=== PATIENT | female | born 1930 | race Caucasian/White ===

== ENCOUNTER 2017-12-29 13:30 | Inpatient (IN) | payer MEDICARE, MEDICAID ==
[~2017-12-29] VITALS: Ht 167.6 cm; Wt 74.4 kg
[~2017-12-29 13:30] MED LIST: GABA-530 PO; HYDR-569 PO; LEVO125T69 PO; LISI-222 PO; LOP25T PO; MONT10TA21 PO; NAPR-56 PO; NITR0.4T51 SL; OXYGEN; SPIIN INH; ZET10T PO
[2017-12-29] MEDS ORDERED: methylPREDNISolone sod succ 125mg/2ml vial IV ONE (13:50)
[2017-12-29] MEDS: albuterol 2.5 MG/3 ML nebule CONTNEB PRN ×2 (14:09→14:11)
[2017-12-29 14:17] LABS: BASOPHILS % (AUTO) 0.3 % (0-1); EOSINOPHILS # (AUTO) 0.1 X10'3 (0-0.9); EOSINOPHILS % (AUTO) 2.1 % (0-6); HEMATOCRIT 37.2 % (35.0-45.0); HEMOGLOBIN 12.4 g/dl (12.0-16.0); LYMPHOCYTES # (AUTO) 1.9 X10'3 (1.1-4.8); LYMPHOCYTES % (AUTO) 34.5 % (21-51); MEAN CORPUSCULAR HEMOGLOBIN 33.8 PG (27.0-31.0); MEAN CORPUSCULAR HGB CONC 33.3 % (33.0-36.5); MEAN CORPUSCULAR VOLUME 101.6 FL (78-98); MEAN PLATELET VOLUME 7.8 FL (7.4-10.4); MONOCYTES # (AUTO) 0.6 X10'3 (0-0.9); MONOCYTES % (AUTO) 9.9 % (2-12); NEUTROPHILS % (AUTO) 53.2 % (42-75); PLATELET COUNT 181 X10'3 (140-440); RED BLOOD COUNT 3.67 X10'6 (4.20-5.60); RED CELL DISTRIBUTION WIDTH 14.2 % (11.5-14.5); WHITE BLOOD COUNT 5.6 X10'3 (4.5-11.0)
[2017-12-29 14:26] LABS: ABG BASE EXCESS 2.3 mmol/L (-2.0-3.0); ABG HCO3 28.6 mmol/L (22.0-26.0); ABG OXYGEN SATURATION 93.8 % (95-98); ABG PCO2 (T) 51.2 mmHg (32.0-45.0); ABG PH (T) 7.365 (7.350-7.450); ABG PO2 (T) 69.6 mmHg (83-108); ALLEN'S TEST Positive; FCOHb 0.5 % (0.5-1.5); FMetHb 0.1 % (0.3-1.12); FO2Hb 93.2 % (94-100); TOTAL HEMOGLOBIN 13.3 G/dl (12.0-16.0)
[2017-12-29 14:39] LABS: ALANINE AMINOTRANSFERASE 27 U/L (12-78); ALBUMIN 3.5 G/DL (3.4-5.0); ALBUMIN/GLOBULIN RATIO 0.9 (1.1-1.5); ALKALINE PHOSPHATASE 80 IU/L (46-116); ANION GAP 9 (8-16); ASPARTATE AMINO TRANSFERASE 21 U/L (10-37); BILIRUBIN,TOTAL 0.5 MG/DL (0.1-1.0); BLOOD UREA NITROGEN 29 MG/DL (7-18); BUN/CREATININE RATIO 22.3 (6.6-38.0); CALCIUM 8.8 MG/DL (8.5-10.1); CHLORIDE 107 MMOL/L (99-107); GLUCOSE 110 MG/DL (70-104); POTASSIUM 4.1 MMOL/L (3.5-5.1); SODIUM 146 MMOL/L (135-145); TOTAL CARBON DIOXIDE 30.3 MMOL/L (24-32); TOTAL PROTEIN 7.4 G/DL (6.4-8.2); eGFR 39 ML/MIN
[2017-12-29] MEDS ORDERED: LORazepam 2 mg/ml vial IV ONE (14:40)
[2017-12-29] MEDS ORDERED: magnesium 2GM in 50ml NS 50 ML IV PRN (15:25)
[2017-12-29] MEDS ORDERED: magnesium Cl slow-release 64mg tablet PO PRN (15:25)
[2017-12-29] MEDS ORDERED: morphine 4 MG/ML inj SYRINge IV PRN ×2 (15:25)
[2017-12-29] MEDS ORDERED: potassium Cl 40MEQ/NS 500ml 500 ML IV PRN ×2 (15:25)
[2017-12-29] MEDS ORDERED: acetaminophen 325mg tablet PO PRN (15:25)
[2017-12-29] MEDS ORDERED: magnesium hydroxide 30ml (MOM) UD suspension PO PRN (15:25)
[2017-12-29] MEDS ORDERED: magnesium 4gm in 100ml NS 100 ML IV PRN (15:25)
[2017-12-29] MEDS: K and/or MAG REPLACEMENT MC SCH (15:25)
[2017-12-29] MEDS ORDERED: potassium Cl 20 mEq SR tablet PO PRN ×2 (15:25)
[2017-12-29] MEDS ORDERED: ondansetron/PF 4mg/2ml inj IV PRN (15:25)
[2017-12-29] MEDS ORDERED: mag hydrox/Alum hydrox/simeth 30ml oral suspension PO PRN (15:25)
[2017-12-29] MEDS: CefTRIAXone/D5W-Rocephin 1gm 50 ML IV SCH (16:47)
[2017-12-29] MEDS: normal saline 1000ml 1,000 ML IV SCH (16:47)
[2017-12-29] MEDS: enoxaparin 40mg/0.4ml syringe SUBCUT SCH (16:48)
[2017-12-29] MEDS ORDERED: dextrose ORAL solution 15 GM/59 ML bottle PO PRN ×2 (17:00)
[2017-12-29] MEDS ORDERED: dextrose 50%-water 50ml dispensing syringe IV PRN ×2 (17:00)
[2017-12-29] MEDS ORDERED: glucagon, human recombinant 1mg kit SUBCUT PRN (17:00)
[2017-12-29] MEDS ORDERED: MESSAGE TO PHARMACY PO ONE (17:00)
[2017-12-29 17:19] LABS: HEMOGLOBIN A1C 5.6 % (4.5-6.2)
[2017-12-29] MEDS: levoFLOXACIN-Levaquin 250mg/D5 50 ML IV SCH (18:06)
[2017-12-29] MEDS: ipratropium/albuterol 3ml nebule NEB SCH ×2 (20:19→23:00)
[2017-12-29] MEDS ORDERED: temazepam 15mg capsule PO PRN (21:00)
[2017-12-29] MEDS: guaiFENesin ER 600mg tablet PO SCH (21:41)
[2017-12-29] MEDS: methylPREDNISolone sod succ 125mg/2ml vial IV SCH (21:41)
[2017-12-29] MEDS: insulin glargine (Lantus) pen - multi-dose SQ SCH (22:43)
[2017-12-29] MEDS: insulin Lispro (HumaLOG) vial - multi-dose SQ SCH (22:45)
[2017-12-29] MEDS: acetaminophen 325mg tablet PO PRN (22:46)
[2017-12-29] MEDS ORDERED: FLUT16SP10 (22:58)
[2017-12-29] MEDS ORDERED: UMEC1DIS (22:58)
[2017-12-29] MEDS ORDERED: METO-539 PO (22:58)
[2017-12-29] MEDS ORDERED: FURO-150 PO (22:58)
[2017-12-29] MEDS ORDERED: SYN0.088T PO (22:58)
[2017-12-29] MEDS ORDERED: EZET10TA14 PO (22:58)
[2017-12-30] MEDS: ipratropium/albuterol 3ml nebule NEB PRN (00:06)
[2017-12-30] MEDS: ipratropium/albuterol 3ml nebule NEB SCH ×6 (00:07→23:48)
[2017-12-30] MEDS: methylPREDNISolone sod succ 125mg/2ml vial IV SCH ×4 (03:45→19:31)
[2017-12-30] MEDS: normal saline 1000ml 1,000 ML IV SCH ×2 (05:55→20:00)
[2017-12-30 05:56] LABS: HEMATOCRIT 33.9 % (35.0-45.0); HEMOGLOBIN 11.1 g/dl (12.0-16.0); MEAN CORPUSCULAR HEMOGLOBIN 33.3 PG (27.0-31.0); MEAN CORPUSCULAR HGB CONC 32.6 % (33.0-36.5); MEAN CORPUSCULAR VOLUME 102.2 FL (78-98); PLATELET COUNT 153 X10'3 (140-440); RED BLOOD COUNT 3.32 X10'6 (4.20-5.60); RED CELL DISTRIBUTION WIDTH 14.1 % (11.5-14.5); WHITE BLOOD COUNT 4.1 X10'3 (4.5-11.0)
[2017-12-30 06:10] LABS: ANION GAP 10 (8-16); BLOOD UREA NITROGEN 35 MG/DL (7-18); BUN/CREATININE RATIO 22.3 (6.6-38.0); CALCIUM 8.6 MG/DL (8.5-10.1); CHLORIDE 108 MMOL/L (99-107); CREATININE 1.57 MG/DL (0.40-0.90); GLUCOSE 195 MG/DL (70-104); MAGNESIUM 1.9 MG/DL (1.5-2.4); POTASSIUM 4.1 MMOL/L (3.5-5.1); SODIUM 144 MMOL/L (135-145); TOTAL CARBON DIOXIDE 26.4 MMOL/L (24-32); eGFR 31 ML/MIN
[2017-12-30 07:00] VITALS: BP 143/63
[2017-12-30] MEDS: K and/or MAG REPLACEMENT MC SCH (08:00)
[2017-12-30] MEDS: CefTRIAXone/D5W-Rocephin 1gm 50 ML IV SCH (08:34)
[2017-12-30] MEDS: guaiFENesin ER 600mg tablet PO SCH ×2 (08:34→19:31)
[2017-12-30] MEDS: levoFLOXACIN-Levaquin 250mg/D5 50 ML IV SCH (08:35)
[2017-12-30] MEDS: enoxaparin 40mg/0.4ml syringe SUBCUT SCH (08:36)
[2017-12-30] MEDS: insulin Lispro (HumaLOG) vial - multi-dose SQ SCH ×3 (10:20→19:45)
[2017-12-30 15:00] VITALS: BP 120/54
[2017-12-30] MEDS: acetaminophen 325mg tablet PO PRN (16:17)
[2017-12-30 18:00] VITALS: BP 143/71
[2017-12-30] MEDS: insulin glargine (Lantus) pen - multi-dose SQ SCH (21:00)
[2017-12-30 22:00] VITALS: BP 107/56
[2017-12-31] MEDS: methylPREDNISolone sod succ 125mg/2ml vial IV SCH ×4 (01:51→19:22)
[2017-12-31 02:00] VITALS: BP 124/57
[2017-12-31 06:00] VITALS: BP 121/70
[2017-12-31 06:29] LABS: HEMATOCRIT 33.9 % (35.0-45.0); HEMOGLOBIN 11.2 g/dl (12.0-16.0); MEAN CORPUSCULAR HEMOGLOBIN 33.1 PG (27.0-31.0); MEAN CORPUSCULAR HGB CONC 32.9 % (33.0-36.5); MEAN CORPUSCULAR VOLUME 100.6 FL (78-98); MEAN PLATELET VOLUME 8.5 FL (7.4-10.4); PLATELET COUNT 164 X10'3 (140-440); RED BLOOD COUNT 3.37 X10'6 (4.20-5.60); RED CELL DISTRIBUTION WIDTH 14.1 % (11.5-14.5); WHITE BLOOD COUNT 19.6 X10'3 (4.5-11.0)
[2017-12-31 06:48] LABS: ANION GAP 7 (8-16); BLOOD UREA NITROGEN 46 MG/DL (7-18); BUN/CREATININE RATIO 30.9 (6.6-38.0); CALCIUM 8.9 MG/DL (8.5-10.1); CHLORIDE 109 MMOL/L (99-107); CREATININE 1.49 MG/DL (0.40-0.90); GLUCOSE 162 MG/DL (70-104); POTASSIUM 5.1 MMOL/L (3.5-5.1); SODIUM 143 MMOL/L (135-145); TOTAL CARBON DIOXIDE 27.3 MMOL/L (24-32); eGFR 33 ML/MIN
[2017-12-31] MEDS: ipratropium/albuterol 3ml nebule NEB SCH ×5 (07:05→23:00)
[2017-12-31] MEDS: CefTRIAXone/D5W-Rocephin 1gm 50 ML IV SCH (07:36)
[2017-12-31] MEDS: guaiFENesin ER 600mg tablet PO SCH ×2 (07:36→19:37)
[2017-12-31] MEDS: enoxaparin 40mg/0.4ml syringe SUBCUT SCH (07:37)
[2017-12-31] MEDS: K and/or MAG REPLACEMENT MC SCH (08:00)
[2017-12-31] MEDS: insulin Lispro (HumaLOG) vial - multi-dose SQ SCH ×3 (09:19→19:37)
[2017-12-31] MEDS ORDERED: normal saline 1000ml 1,000 ML IV SCH (10:25)
[2017-12-31 10:52] LABS: ANISOCYTOSIS 1+; PLATELET ESTIMATE NORMAL; POLYCHROMASIA FEW; TOTAL CELLS COUNTED 100
[2017-12-31] MEDS: levoFLOXACIN 250mg tablet PO SCH (11:16)
[2017-12-31] MEDS: acetaminophen 325mg tablet PO PRN (14:02)
[2017-12-31 15:00] VITALS: BP 182/62
[2017-12-31] MEDS ORDERED: enoxaparin 30mg/0.3ml syringe SUBCUT SCH (15:50)
[2017-12-31 18:00] VITALS: BP 145/67
[2017-12-31] MEDS: furosemide 40mg/4ml inj IV SCH (19:27)
[2017-12-31] MEDS: insulin glargine (Lantus) pen - multi-dose SQ SCH (21:25)
[2017-12-31 22:00] VITALS: BP 154/71
[2018-01-01 02:00] VITALS: BP 141/69
[2018-01-01] MEDS: methylPREDNISolone sod succ 125mg/2ml vial IV SCH ×4 (02:14→19:45)
[2018-01-01 05:58] LABS: HEMATOCRIT 33.7 % (35.0-45.0); HEMOGLOBIN 11.3 g/dl (12.0-16.0); MEAN CORPUSCULAR HEMOGLOBIN 33.7 PG (27.0-31.0); MEAN CORPUSCULAR HGB CONC 33.5 % (33.0-36.5); MEAN CORPUSCULAR VOLUME 100.8 FL (78-98); MEAN PLATELET VOLUME 8.6 FL (7.4-10.4); PLATELET COUNT 171 X10'3 (140-440); RED BLOOD COUNT 3.34 X10'6 (4.20-5.60); RED CELL DISTRIBUTION WIDTH 14.1 % (11.5-14.5); WHITE BLOOD COUNT 17.4 X10'3 (4.5-11.0)
[2018-01-01 06:00] VITALS: BP 166/85
[2018-01-01 06:11] LABS: ALBUMIN 3.1 G/DL (3.4-5.0); ANION GAP 7 (8-16); BLOOD UREA NITROGEN 61 MG/DL (7-18); BUN/CREATININE RATIO 35.9 (6.6-38.0); CALCIUM 8.9 MG/DL (8.5-10.1); CHLORIDE 107 MMOL/L (99-107); GLUCOSE 141 MG/DL (70-104); POTASSIUM 4.4 MMOL/L (3.5-5.1); SODIUM 144 MMOL/L (135-145); TOTAL CARBON DIOXIDE 29.7 MMOL/L (24-32); eGFR 28 ML/MIN
[2018-01-01] MEDS: CefTRIAXone/D5W-Rocephin 1gm 50 ML IV SCH (07:22)
[2018-01-01] MEDS: furosemide 40mg/4ml inj IV SCH ×2 (07:23→19:39)
[2018-01-01] MEDS: ipratropium/albuterol 3ml nebule NEB SCH ×4 (07:24→23:00)
[2018-01-01] MEDS: guaiFENesin ER 600mg tablet PO SCH ×2 (07:24→19:39)
[2018-01-01] MEDS: enoxaparin 30mg/0.3ml syringe SUBCUT SCH (07:24)
[2018-01-01] MEDS: K and/or MAG REPLACEMENT MC SCH (08:00)
[2018-01-01] MEDS: insulin Lispro (HumaLOG) vial - multi-dose SQ SCH ×2 (08:55→19:17)
[2018-01-01] MEDS: acetaminophen 325mg tablet PO PRN ×2 (09:08→19:22)
[2018-01-01 11:00] VITALS: BP 150/76
[2018-01-01] MEDS: levoFLOXACIN 250mg tablet PO SCH (11:35)
[2018-01-01] MEDS: levoTHYROXINE 88mcg tablet PO SCH (12:52)
[2018-01-01 15:00] VITALS: BP 147/80
[2018-01-01 18:00] VITALS: BP 147/64
[2018-01-01] MEDS: lactobacillus rhamnosus 10,000 MMU CELLS/CAPSULE PO SCH (19:38)
[2018-01-01] MEDS: insulin glargine (Lantus) pen - multi-dose SQ SCH (21:36)
[2018-01-01 22:00] VITALS: BP 118/55
[2018-01-02 02:00] VITALS: BP 157/80
[2018-01-02] MEDS: methylPREDNISolone sod succ 125mg/2ml vial IV SCH ×4 (02:04→19:16)
[2018-01-02 05:46] LABS: HEMATOCRIT 37.8 % (35.0-45.0); HEMOGLOBIN 12.7 g/dl (12.0-16.0); MEAN CORPUSCULAR HEMOGLOBIN 33.7 PG (27.0-31.0); MEAN CORPUSCULAR HGB CONC 33.6 % (33.0-36.5); MEAN CORPUSCULAR VOLUME 100.5 FL (78-98); MEAN PLATELET VOLUME 8.8 FL (7.4-10.4); PLATELET COUNT 184 X10'3 (140-440); RED BLOOD COUNT 3.76 X10'6 (4.20-5.60); RED CELL DISTRIBUTION WIDTH 14.5 % (11.5-14.5); WHITE BLOOD COUNT 14.4 X10'3 (4.5-11.0)
[2018-01-02 06:00] VITALS: BP 132/56
[2018-01-02 06:17] LABS: ALBUMIN 3.3 G/DL (3.4-5.0); BLOOD UREA NITROGEN 76 MG/DL (7-18); BUN/CREATININE RATIO 41.3 (6.6-38.0); CHLORIDE 106 MMOL/L (99-107); CREATININE 1.84 MG/DL (0.40-0.90); GLUCOSE 141 MG/DL (70-104); MAGNESIUM 1.9 MG/DL (1.5-2.4); TOTAL CARBON DIOXIDE 31.6 MMOL/L (24-32); eGFR 26 ML/MIN
[2018-01-02 06:32] LABS: ANION GAP 10 (8-16); POTASSIUM 4.4 MMOL/L (3.5-5.1); SODIUM 148 MMOL/L (135-145)
[2018-01-02] MEDS ORDERED: levoTHYROXINE 88mcg tablet PO SCH (07:00)
[2018-01-02] MEDS: levoTHYROXINE 88mcg tablet PO SCH (07:00)
[2018-01-02] MEDS: ipratropium/albuterol 3ml nebule NEB SCH ×4 (07:15→23:00)
[2018-01-02] MEDS: lactobacillus rhamnosus 10,000 MMU CELLS/CAPSULE PO SCH ×2 (07:55→19:13)
[2018-01-02] MEDS: guaiFENesin ER 600mg tablet PO SCH ×2 (07:55→19:13)
[2018-01-02] MEDS: furosemide 40mg/4ml inj IV SCH (07:55)
[2018-01-02] MEDS: enoxaparin 30mg/0.3ml syringe SUBCUT SCH (07:56)
[2018-01-02] MEDS: K and/or MAG REPLACEMENT MC SCH (08:00)
[2018-01-02] MEDS: insulin Lispro (HumaLOG) vial - multi-dose SQ SCH ×3 (08:19→19:13)
[2018-01-02] MEDS: CefTRIAXone/D5W-Rocephin 1gm 50 ML IV SCH (08:24)
[2018-01-02 11:00] VITALS: BP 148/80
[2018-01-02] MEDS: levoFLOXACIN 250mg tablet PO SCH (11:07)
[2018-01-02 15:00] VITALS: BP 146/75
[2018-01-02 18:30] VITALS: BP 163/84
[2018-01-02] MEDS: ipratropium/albuterol 3ml nebule NEB PRN (19:31)
[2018-01-02] MEDS: insulin glargine (Lantus) pen - multi-dose SQ SCH (20:58)
[2018-01-02 22:00] VITALS: BP 161/82
[2018-01-03] MEDS: methylPREDNISolone sod succ 125mg/2ml vial IV SCH ×4 (01:32→19:23)
[2018-01-03 02:00] VITALS: BP 140/60
[2018-01-03 06:00] VITALS: BP 133/63
[2018-01-03 06:02] LABS: HEMATOCRIT 35.5 % (35.0-45.0); HEMOGLOBIN 11.9 g/dl (12.0-16.0); MEAN CORPUSCULAR HEMOGLOBIN 33.7 PG (27.0-31.0); MEAN CORPUSCULAR HGB CONC 33.5 % (33.0-36.5); MEAN CORPUSCULAR VOLUME 100.5 FL (78-98); MEAN PLATELET VOLUME 8.8 FL (7.4-10.4); PLATELET COUNT 179 X10'3 (140-440); RED BLOOD COUNT 3.54 X10'6 (4.20-5.60); RED CELL DISTRIBUTION WIDTH 14.3 % (11.5-14.5); WHITE BLOOD COUNT 9.2 X10'3 (4.5-11.0)
[2018-01-03 06:17] LABS: ALBUMIN 3.1 G/DL (3.4-5.0); ANION GAP 9 (8-16); BLOOD UREA NITROGEN 71 MG/DL (7-18); BUN/CREATININE RATIO 44.9 (6.6-38.0); CALCIUM 8.4 MG/DL (8.5-10.1); CHLORIDE 105 MMOL/L (99-107); CREATININE 1.58 MG/DL (0.40-0.90); GLUCOSE 144 MG/DL (70-104); POTASSIUM 3.8 MMOL/L (3.5-5.1); SODIUM 146 MMOL/L (135-145); TOTAL CARBON DIOXIDE 32.5 MMOL/L (24-32); eGFR 31 ML/MIN
[2018-01-03] MEDS: furosemide 20MG tablet PO SCH (07:19)
[2018-01-03] MEDS: levoTHYROXINE 88mcg tablet PO SCH (07:19)
[2018-01-03] MEDS: guaiFENesin ER 600mg tablet PO SCH ×2 (07:19→19:23)
[2018-01-03] MEDS: lactobacillus rhamnosus 10,000 MMU CELLS/CAPSULE PO SCH ×2 (07:19→19:23)
[2018-01-03] MEDS: aspirin 81mg tablet.DR PO SCH (07:19)
[2018-01-03] MEDS: atorvastatin 20mg tablet PO SCH (07:19)
[2018-01-03] MEDS: enoxaparin 30mg/0.3ml syringe SUBCUT SCH (07:20)
[2018-01-03] MEDS: K and/or MAG REPLACEMENT MC SCH (08:00)
[2018-01-03] MEDS: insulin Lispro (HumaLOG) vial - multi-dose SQ SCH ×3 (08:17→19:31)
[2018-01-03] MEDS: CefTRIAXone/D5W-Rocephin 1gm 50 ML IV SCH (08:56)
[2018-01-03 11:00] VITALS: BP 136/78
[2018-01-03] MEDS: levoFLOXACIN 250mg tablet PO SCH (11:56)
[2018-01-03] MEDS: ipratropium/albuterol 3ml nebule NEB SCH ×4 (13:05→23:00)
[2018-01-03 15:00] VITALS: BP 168/88
[2018-01-03 18:30] VITALS: BP 161/82
[2018-01-03] MEDS: insulin glargine (Lantus) pen - multi-dose SQ SCH (21:36)
[2018-01-03 22:00] VITALS: BP 125/49
[2018-01-04] MEDS: methylPREDNISolone sod succ 125mg/2ml vial IV SCH ×2 (01:56→07:48)
[2018-01-04 02:00] VITALS: BP 120/71
[2018-01-04 06:00] VITALS: BP 148/67
[2018-01-04] MEDS: levoTHYROXINE 88mcg tablet PO SCH (07:47)
[2018-01-04] MEDS: aspirin 81mg tablet.DR PO SCH (07:48)
[2018-01-04] MEDS: guaiFENesin ER 600mg tablet PO SCH ×2 (07:48→19:11)
[2018-01-04] MEDS: lactobacillus rhamnosus 10,000 MMU CELLS/CAPSULE PO SCH ×2 (07:48→19:11)
[2018-01-04] MEDS: atorvastatin 20mg tablet PO SCH (07:48)
[2018-01-04] MEDS: furosemide 20MG tablet PO SCH (07:48)
[2018-01-04] MEDS: enoxaparin 30mg/0.3ml syringe SUBCUT SCH (07:49)
[2018-01-04] MEDS: CefTRIAXone/D5W-Rocephin 1gm 50 ML IV SCH (07:49)
[2018-01-04] MEDS: K and/or MAG REPLACEMENT MC SCH (07:58)
[2018-01-04] MEDS: ipratropium/albuterol 3ml nebule NEB SCH ×5 (08:03→23:00)
[2018-01-04] MEDS: insulin Lispro (HumaLOG) vial - multi-dose SQ SCH ×3 (09:05→19:15)
[2018-01-04] MEDS: levoFLOXACIN 250mg tablet PO SCH (10:41)
[2018-01-04 11:00] VITALS: BP 142/70
[2018-01-04 15:00] VITALS: BP 129/50
[2018-01-04 18:30] VITALS: BP 132/64
[2018-01-04] MEDS: insulin glargine (Lantus) pen - multi-dose SQ SCH (20:43)
[2018-01-04 22:00] VITALS: BP 133/54
[2018-01-05 02:00] VITALS: BP 132/51
[2018-01-05 06:00] VITALS: BP 137/58
[2018-01-05] MEDS: guaiFENesin ER 600mg tablet PO SCH ×2 (07:59→19:07)
[2018-01-05] MEDS: lactobacillus rhamnosus 10,000 MMU CELLS/CAPSULE PO SCH ×2 (07:59→19:07)
[2018-01-05] MEDS: aspirin 81mg tablet.DR PO SCH (07:59)
[2018-01-05] MEDS: atorvastatin 20mg tablet PO SCH (07:59)
[2018-01-05] MEDS: levoTHYROXINE 88mcg tablet PO SCH (07:59)
[2018-01-05] MEDS: prednisone 10mg tablet PO SCH (08:00)
[2018-01-05] MEDS: enoxaparin 30mg/0.3ml syringe SUBCUT SCH (08:00)
[2018-01-05] MEDS: CefTRIAXone/D5W-Rocephin 1gm 50 ML IV SCH (08:00)
[2018-01-05] MEDS: K and/or MAG REPLACEMENT MC SCH (08:00)
[2018-01-05] MEDS: furosemide 20MG tablet PO SCH (08:01)
[2018-01-05] MEDS: ipratropium/albuterol 3ml nebule NEB SCH ×5 (08:25→23:24)
[2018-01-05 08:58] LABS: BASOPHILS % (AUTO) 0.3 % (0-1); EOSINOPHILS # (AUTO) 0.1 X10'3 (0-0.9); EOSINOPHILS % (AUTO) 0.9 % (0-6); HEMATOCRIT 36.6 % (35.0-45.0); HEMOGLOBIN 12.1 g/dl (12.0-16.0); LYMPHOCYTES # (AUTO) 1.4 X10'3 (1.1-4.8); LYMPHOCYTES % (AUTO) 13.4 % (21-51); MEAN CORPUSCULAR HEMOGLOBIN 33.3 PG (27.0-31.0); MEAN CORPUSCULAR HGB CONC 33.2 % (33.0-36.5); MEAN CORPUSCULAR VOLUME 100.5 FL (78-98); MEAN PLATELET VOLUME 8.3 FL (7.4-10.4); MONOCYTES % (AUTO) 9.3 % (2-12); NEUTROPHILS # (AUTO) 7.8 X10'3 (1.8-7.7); NEUTROPHILS % (AUTO) 76.1 % (42-75); PLATELET COUNT 186 X10'3 (140-440); RED BLOOD COUNT 3.64 X10'6 (4.20-5.60); RED CELL DISTRIBUTION WIDTH 14.1 % (11.5-14.5); WHITE BLOOD COUNT 10.3 X10'3 (4.5-11.0)
[2018-01-05 09:13] LABS: ALANINE AMINOTRANSFERASE 45 U/L (12-78); ALKALINE PHOSPHATASE 51 IU/L (46-116); ANION GAP 6 (8-16); ASPARTATE AMINO TRANSFERASE 30 U/L (10-37); BILIRUBIN,TOTAL 0.5 MG/DL (0.1-1.0); BLOOD UREA NITROGEN 60 MG/DL (7-18); CALCIUM 8.1 MG/DL (8.5-10.1); CHLORIDE 105 MMOL/L (99-107); CREATININE 1.54 MG/DL (0.40-0.90); GLUCOSE 122 MG/DL (70-104); POTASSIUM 3.6 MMOL/L (3.5-5.1); SODIUM 147 MMOL/L (135-145); TOTAL CARBON DIOXIDE 36.3 MMOL/L (24-32); TOTAL PROTEIN 6.1 G/DL (6.4-8.2); eGFR 32 ML/MIN
[2018-01-05] MEDS: levoFLOXACIN 250mg tablet PO SCH (10:58)
[2018-01-05 11:00] VITALS: BP 141/59
[2018-01-05 15:00] VITALS: BP 124/61
[2018-01-05 18:00] VITALS: BP 156/77
[2018-01-05 22:00] VITALS: BP 130/71
[2018-01-06 03:00] VITALS: BP 112/42
[2018-01-06 06:00] VITALS: BP 120/48
[2018-01-06 06:14] LABS: BASOPHILS % (AUTO) 0.2 % (0-1); EOSINOPHILS # (AUTO) 0.1 X10'3 (0-0.9); EOSINOPHILS % (AUTO) 1.6 % (0-6); HEMATOCRIT 34.6 % (35.0-45.0); HEMOGLOBIN 11.6 g/dl (12.0-16.0); LYMPHOCYTES # (AUTO) 1.5 X10'3 (1.1-4.8); MEAN CORPUSCULAR HEMOGLOBIN 33.3 PG (27.0-31.0); MEAN CORPUSCULAR HGB CONC 33.5 % (33.0-36.5); MEAN CORPUSCULAR VOLUME 99.5 FL (78-98); MEAN PLATELET VOLUME 8.2 FL (7.4-10.4); MONOCYTES # (AUTO) 1.1 X10'3 (0-0.9); MONOCYTES % (AUTO) 12.1 % (2-12); NEUTROPHILS # (AUTO) 6.3 X10'3 (1.8-7.7); NEUTROPHILS % (AUTO) 70.1 % (42-75); PLATELET COUNT 178 X10'3 (140-440); RED BLOOD COUNT 3.48 X10'6 (4.20-5.60); RED CELL DISTRIBUTION WIDTH 14.4 % (11.5-14.5); WHITE BLOOD COUNT 9.1 X10'3 (4.5-11.0)
[2018-01-06 06:22] LABS: ALBUMIN 2.8 G/DL (3.4-5.0); ANION GAP 5 (8-16); BLOOD UREA NITROGEN 57 MG/DL (7-18); CALCIUM 8.3 MG/DL (8.5-10.1); CHLORIDE 107 MMOL/L (99-107); GLUCOSE 113 MG/DL (70-104); SODIUM 148 MMOL/L (135-145); eGFR 33 ML/MIN
[2018-01-06] MEDS: ipratropium/albuterol 3ml nebule NEB SCH ×4 (07:23→23:00)
[2018-01-06] MEDS: K and/or MAG REPLACEMENT MC SCH (08:00)
[2018-01-06] MEDS: aspirin 81mg tablet.DR PO SCH (08:16)
[2018-01-06] MEDS: levoTHYROXINE 88mcg tablet PO SCH (08:16)
[2018-01-06] MEDS: furosemide 20MG tablet PO SCH (08:16)
[2018-01-06] MEDS: atorvastatin 20mg tablet PO SCH (08:17)
[2018-01-06] MEDS: prednisone 10mg tablet PO SCH (08:17)
[2018-01-06] MEDS: lactobacillus rhamnosus 10,000 MMU CELLS/CAPSULE PO SCH ×2 (08:18→19:07)
[2018-01-06] MEDS: guaiFENesin ER 600mg tablet PO SCH ×2 (08:18→19:07)
[2018-01-06] MEDS: enoxaparin 30mg/0.3ml syringe SUBCUT SCH (08:21)
[2018-01-06] MEDS: CefTRIAXone/D5W-Rocephin 1gm 50 ML IV SCH (08:21)
[2018-01-06 11:00] VITALS: BP 112/46
[2018-01-06] MEDS: levoFLOXACIN 250mg tablet PO SCH (11:34)
[2018-01-06 15:00] VITALS: BP 125/71
[2018-01-06 19:00] VITALS: BP 145/61
[2018-01-06 23:00] VITALS: BP 125/49
[2018-01-07 03:00] VITALS: BP 112/64
[2018-01-07 05:16] LABS: ALBUMIN 2.7 G/DL (3.4-5.0); ANION GAP 6 (8-16); BLOOD UREA NITROGEN 57 MG/DL (7-18); BUN/CREATININE RATIO 41.3 (6.6-38.0); CALCIUM 8.1 MG/DL (8.5-10.1); CHLORIDE 106 MMOL/L (99-107); CREATININE 1.38 MG/DL (0.40-0.90); GLUCOSE 96 MG/DL (70-104); POTASSIUM 4.2 MMOL/L (3.5-5.1); SODIUM 147 MMOL/L (135-145); TOTAL CARBON DIOXIDE 35.1 MMOL/L (24-32); eGFR 36 ML/MIN
[2018-01-07 05:24] LABS: BASOPHILS % (AUTO) 0.2 % (0-1); EOSINOPHILS # (AUTO) 0.2 X10'3 (0-0.9); EOSINOPHILS % (AUTO) 1.7 % (0-6); HEMATOCRIT 32.7 % (35.0-45.0); LYMPHOCYTES # (AUTO) 1.5 X10'3 (1.1-4.8); LYMPHOCYTES % (AUTO) 14.3 % (21-51); MEAN CORPUSCULAR HEMOGLOBIN 33.5 PG (27.0-31.0); MEAN CORPUSCULAR HGB CONC 33.6 % (33.0-36.5); MEAN CORPUSCULAR VOLUME 99.7 FL (78-98); MEAN PLATELET VOLUME 8.4 FL (7.4-10.4); MONOCYTES % (AUTO) 9.7 % (2-12); NEUTROPHILS # (AUTO) 7.8 X10'3 (1.8-7.7); NEUTROPHILS % (AUTO) 74.1 % (42-75); PLATELET COUNT 183 X10'3 (140-440); RED BLOOD COUNT 3.28 X10'6 (4.20-5.60); WHITE BLOOD COUNT 10.5 X10'3 (4.5-11.0)
[2018-01-07 06:00] VITALS: BP 138/69
[2018-01-07] MEDS: ipratropium/albuterol 3ml nebule NEB SCH ×2 (07:00→11:29)
[2018-01-07] MEDS: atorvastatin 20mg tablet PO SCH (07:46)
[2018-01-07] MEDS: prednisone 10mg tablet PO SCH (07:47)
[2018-01-07] MEDS: lactobacillus rhamnosus 10,000 MMU CELLS/CAPSULE PO SCH (07:47)
[2018-01-07] MEDS: levoTHYROXINE 88mcg tablet PO SCH (07:47)
[2018-01-07] MEDS: aspirin 81mg tablet.DR PO SCH (07:47)
[2018-01-07] MEDS: furosemide 20MG tablet PO SCH (07:48)
[2018-01-07] MEDS: guaiFENesin ER 600mg tablet PO SCH (07:48)
[2018-01-07] MEDS: enoxaparin 30mg/0.3ml syringe SUBCUT SCH (07:49)
[2018-01-07] MEDS: K and/or MAG REPLACEMENT MC SCH (08:00)
[2018-01-07 11:00] VITALS: BP 110/60
[2018-01-07] MEDS ORDERED: IPRA3AMP9 NEB (12:48)
[2018-01-07] MEDS ORDERED: LEVO500T2 PO (12:48)
[2018-01-07] MEDS ORDERED: ASPI-1071 PO (12:48)
[2018-01-07] MEDS ORDERED: GUAI600T45 PO (12:48)
[2018-01-07] MEDS ORDERED: PRED10TA23 PO (12:48)
[2018-01-07] MEDS ORDERED: NEBU-161 (12:54)
[2018-01-07 15:00] VITALS: BP 95/71
[2018-01-07] MEDS ORDERED: ALBU8.5H8 IH (16:34)
[2018-01-07] MEDS ORDERED: ATRIN INH (16:34)
== END 2018-01-07 17:19 | disposition home health service (06) | DRG 871 ==
LOC: ER 13:31 → ED HOLD 15:24 → EDBEDREQ 16:45 → ED HOLD 23:51 → EDBEDREQ 12-30 05:12 → PCU 3S 12-30 08:03
PROVIDERS: ADMIT Family Medicine; ATTEND Emergency Medicine
DX: A41.9 Sepsis, unspecified organism (principal); J18.9 Pneumonia, unspecified organism; J96.21 Acute and chronic respiratory failure with hypoxia; I13.0 Hypertensive heart and chronic kidney disease with heart failure and stage 1 through stage 4 chronic kidney disease, or unspecified chronic kidney disease; N17.9 Acute kidney failure, unspecified; E87.0 Hyperosmolality and hypernatremia; E11.22 Type 2 diabetes mellitus with diabetic chronic kidney disease; I50.30 Unspecified diastolic (congestive) heart failure; J96.22 Acute and chronic respiratory failure with hypercapnia; J44.1 Chronic obstructive pulmonary disease with (acute) exacerbation; J44.0 Chronic obstructive pulmonary disease with (acute) lower respiratory infection; E78.5 Hyperlipidemia, unspecified; R65.20 Severe sepsis without septic shock; G89.29 Other chronic pain; M54.9 Dorsalgia, unspecified; N18.3 Chronic kidney disease, stage 3 (moderate); J20.9 Acute bronchitis, unspecified; E05.00 Thyrotoxicosis with diffuse goiter without thyrotoxic crisis or storm; I45.10 Unspecified right bundle-branch block; I25.10 Atherosclerotic heart disease of native coronary artery without angina pectoris; Z60.2 Problems related to living alone; Z66 Do not resuscitate; Z95.5 Presence of coronary angioplasty implant and graft; Z90.49 Acquired absence of other specified parts of digestive tract; Z90.710 Acquired absence of both cervix and uterus; Z99.81 Dependence on supplemental oxygen; I25.2 Old myocardial infarction; Z88.0 Allergy status to penicillin; Z88.7 Allergy status to serum and vaccine; Z79.899 Other long term (current) drug therapy; Z85.51 Personal history of malignant neoplasm of bladder
CPT/HCPCS: 36415; 36600; 71045; 80048; 80053; 82803; 82948; 83036; 83605; 83735; 83880; 84443; 84484; 85007; 85018; 85025; 85027; 87040; 87070; 87502; 87503; 93005; 93306; 94640; 94668; 94760; 96374; 97110; 97116; 97161; 99291; J0696; J1650; J1815; J1940; J1956; J2060; J2930; J7030; J7512

== ENCOUNTER 2018-01-24 11:50 | Inpatient (IN) | payer MEDICARE, MEDICAID ==
[~2018-01-24] VITALS: Ht 162.6 cm; Wt 68.2 kg
[~2018-01-24 11:50] MED LIST changes: +ALBU8.5H8 IH; +ASPI-1071 PO; +ATRIN INH; +CYCL-1 PO; +EZET10TA14 PO; +FLUT16SP10; +FURO-150 PO; -GABA-530 PO; +GUAI600T45 PO; +HYDR-3965 PO; -HYDR-569 PO; +IPRA3AMP9 NEB; -LEVO125T69 PO; -LISI-222 PO; -LOP25T PO; +METO-539 PO; -MONT10TA21 PO; -NAPR-56 PO; +NEBU-161; -NITR0.4T51 SL; +ONDA4TAB12 PO; -OXYGEN; +PRED10TA23 PO; -SPIIN INH; +SYN0.088T PO; +UMEC1DIS; -ZET10T PO
[2018-01-24] MEDS ORDERED: HYDROcodone/acetaminophen 10/325mg tab PO ONE (12:10)
[2018-01-24 14:17] LABS: BASOPHILS # (AUTO) 0.1 X10'3 (0-0.2); BASOPHILS % (AUTO) 1.9 % (0-1); EOSINOPHILS # (AUTO) 0.1 X10'3 (0-0.9); EOSINOPHILS % (AUTO) 1.8 % (0-6); HEMATOCRIT 33.7 % (35.0-45.0); HEMOGLOBIN 11.1 g/dl (12.0-16.0); LYMPHOCYTES # (AUTO) 1.1 X10'3 (1.1-4.8); LYMPHOCYTES % (AUTO) 13.7 % (21-51); MEAN CORPUSCULAR HEMOGLOBIN 33.6 PG (27.0-31.0); MEAN PLATELET VOLUME 7.8 FL (7.4-10.4); MONOCYTES # (AUTO) 0.5 X10'3 (0-0.9); MONOCYTES % (AUTO) 6.2 % (2-12); NEUTROPHILS # (AUTO) 5.9 X10'3 (1.8-7.7); NEUTROPHILS % (AUTO) 76.4 % (42-75); PLATELET COUNT 196 X10'3 (140-440); RED CELL DISTRIBUTION WIDTH 13.8 % (11.5-14.5); WHITE BLOOD COUNT 7.7 X10'3 (4.5-11.0)
[2018-01-24 14:59] LABS: COLOR,URINE Yellow (Yellow); GLUCOSE, URINE Negative (Neg); KETONES,URINE Trace mg/dl (Neg); LEUKOCYTE ESTERASE ,URINE Small (Neg); NITRITES, URINE Negative (Neg); OCCULT BLOOD,URINE Negative (Neg); PH,URINE 5.5 (4.8-8.0); PROTEIN,URINE Negative (Neg)
[2018-01-24 15:08] LABS: CLARITY,URINE Cloudy (Clear); UA COLLECTION TYPE STRAIGHT CATH
[2018-01-24 15:12] LABS: HYALINE CASTS 0-3 /LPF (NEGATIVE); SQUAMOUS EPITHELIAL CELL,UR FEW /LPF (FEW); TRANSITIONAL EPI CELLS,URINE MODERATE /HPF
[2018-01-24 15:13] LABS: MUCUS STRANDS MODERATE /LPF (Neg)
[2018-01-24 15:14] LABS: BACTERIA,URINE NONE SEEN /HPF (Neg); RBC,URINE 0-2 /HPF (0-2); RENAL CELLS, URINE FEW /HPF; WBC,URINE 0-4 /HPF (0-4)
[2018-01-24] MEDS ORDERED: morphine 4 MG/ML inj SYRINge IV ONE (15:50)
[2018-01-24 16:07] LABS: ALANINE AMINOTRANSFERASE 32 U/L (12-78); ALBUMIN 2.7 G/DL (3.4-5.0); ALBUMIN/GLOBULIN RATIO 0.8 (1.1-1.5); ALKALINE PHOSPHATASE 54 IU/L (46-116); ANION GAP 8 (8-16); ASPARTATE AMINO TRANSFERASE 36 U/L (10-37); BILIRUBIN,TOTAL 0.5 MG/DL (0.1-1.0); BLOOD UREA NITROGEN 40 MG/DL (7-18); BUN/CREATININE RATIO 24.1 (6.6-38.0); CALCIUM 8.8 MG/DL (8.5-10.1); CHLORIDE 105 MMOL/L (99-107); CREATININE 1.66 MG/DL (0.40-0.90); GLUCOSE 90 MG/DL (70-104); POTASSIUM 4.8 MMOL/L (3.5-5.1); SODIUM 144 MMOL/L (135-145); TOTAL CARBON DIOXIDE 31.5 MMOL/L (24-32); TOTAL PROTEIN 5.9 G/DL (6.4-8.2); eGFR 29 ML/MIN
[2018-01-24] MEDS ORDERED: acetaminophen 325mg tablet PO PRN (17:05)
[2018-01-24] MEDS ORDERED: magnesium hydroxide 30ml (MOM) UD suspension PO PRN (17:05)
[2018-01-24] MEDS ORDERED: ondansetron/PF 4mg/2ml inj IV PRN (17:05)
[2018-01-24] MEDS ORDERED: potassium Cl 40MEQ/NS 500ml 500 ML IV PRN ×2 (17:05)
[2018-01-24] MEDS ORDERED: magnesium Cl slow-release 64mg tablet PO PRN (17:05)
[2018-01-24] MEDS ORDERED: bisacodyl 10mg suppository rectal RC PRN (17:05)
[2018-01-24] MEDS ORDERED: magnesium 2GM in 50ml NS 50 ML IV PRN (17:05)
[2018-01-24] MEDS ORDERED: potassium Cl 20 mEq SR tablet PO PRN ×2 (17:05)
[2018-01-24] MEDS ORDERED: magnesium 4gm in 100ml NS 100 ML IV PRN (17:05)
[2018-01-24] MEDS ORDERED: HYDROcodone/acetaminophen 10/325mg tab PO PRN (17:05)
[2018-01-24] MEDS ORDERED: mag hydrox/Alum hydrox/simeth 30ml oral suspension PO PRN (17:05)
[2018-01-24] MEDS ORDERED: albuterol 2.5 MG/3 ML nebule NEB PRN (17:10)
[2018-01-24] MEDS: LIDOcaine 5% patch TP SCH (17:10)
[2018-01-24] MEDS ORDERED: cyclobenzaprine 10mg tablet PO PRN (17:10)
[2018-01-24] MEDS ORDERED: dextrose 50%-water 50ml dispensing syringe IV PRN ×2 (17:20)
[2018-01-24] MEDS ORDERED: dextrose ORAL solution 15 GM/59 ML bottle PO PRN ×2 (17:20)
[2018-01-24] MEDS ORDERED: MESSAGE TO PHARMACY PO ONE (17:20)
[2018-01-24] MEDS ORDERED: glucagon, human recombinant 1mg kit SUBCUT PRN (17:20)
[2018-01-24] MEDS: sodium chloride 0.45% 1,000 ML IV SCH (18:33)
[2018-01-24] MEDS: insulin glargine (Lantus) pen - multi-dose SQ SCH (20:29)
[2018-01-24] MEDS: ipratropium/albuterol 3ml nebule NEB SCH (20:37)
[2018-01-24] MEDS: docusate sod 100mg capsule PO SCH (20:40)
[2018-01-24] MEDS ORDERED: non-formulary drug (Ipratropium Bromide MDI* (Atrovent MDI*) 2 PUFFS) INH SCH (21:00)
[2018-01-25] MEDS: ipratropium/albuterol 3ml nebule NEB SCH ×4 (02:50→20:22)
[2018-01-25] MEDS: HYDROcodone/acetaminophen 5mg/325mg tablet PO PRN ×2 (04:42→09:43)
[2018-01-25 06:10] LABS: ALBUMIN 2.5 G/DL (3.4-5.0); ANION GAP 4 (8-16); BLOOD UREA NITROGEN 37 MG/DL (7-18); BUN/CREATININE RATIO 24.3 (6.6-38.0); CALCIUM 8.6 MG/DL (8.5-10.1); CHLORIDE 105 MMOL/L (99-107); CREATININE 1.52 MG/DL (0.40-0.90); GLUCOSE 70 MG/DL (70-104); MAGNESIUM 1.9 MG/DL (1.5-2.4); POTASSIUM 4.7 MMOL/L (3.5-5.1); SODIUM 142 MMOL/L (135-145); TOTAL CARBON DIOXIDE 32.9 MMOL/L (24-32); eGFR 32 ML/MIN
[2018-01-25] MEDS: K and/or MAG REPLACEMENT MC SCH (08:00)
[2018-01-25] MEDS ORDERED: enoxaparin 40mg/0.4ml syringe SUBCUT SCH (08:00)
[2018-01-25] MEDS: TYPE IN GENERIC & BRAND NAME OF PATIENT MED STRENGTH & FORM IJ SCH (08:00)
[2018-01-25] MEDS: sodium chloride 0.45% 1,000 ML IV SCH ×2 (09:42→23:58)
[2018-01-25] MEDS: aspirin 81mg tablet.DR PO SCH (09:42)
[2018-01-25] MEDS: metoprolol succinate 25mg (24-HOUR) SR. Tablet PO SCH (09:44)
[2018-01-25] MEDS: LIDOcaine 5% patch TP SCH (09:44)
[2018-01-25] MEDS: levoTHYROXINE 88mcg tablet PO SCH (09:44)
[2018-01-25] MEDS: ezetimibe 10mg tablet PO SCH (09:47)
[2018-01-25] MEDS: docusate sod 100mg capsule PO SCH ×2 (09:47→19:40)
[2018-01-25] MEDS ORDERED: ketorolac tromethamine 15mg/ml inj. IV ONE (12:35)
[2018-01-25] MEDS ORDERED: LISI-600 PO (13:11)
[2018-01-25 18:30] VITALS: BP 145/79
[2018-01-25] MEDS: insulin Lispro (HumaLOG) vial - multi-dose SQ SCH (19:39)
[2018-01-25 20:00] VITALS: BP_SYST 140; BP_SYST 141; BP_SYST 152; BP_DIAS 63; BP_DIAS 79; BP_DIAS 83
[2018-01-25] MEDS: insulin glargine (Lantus) pen - multi-dose SQ SCH (21:23)
[2018-01-25 22:00] VITALS: BP 140/63
[2018-01-26] MEDS: ipratropium/albuterol 3ml nebule NEB SCH ×4 (02:55→20:44)
[2018-01-26 05:51] LABS: ALBUMIN 2.6 G/DL (3.4-5.0); ANION GAP 7 (8-16); BLOOD UREA NITROGEN 33 MG/DL (7-18); BUN/CREATININE RATIO 24.3 (6.6-38.0); CALCIUM 9.1 MG/DL (8.5-10.1); CHLORIDE 103 MMOL/L (99-107); CREATININE 1.36 MG/DL (0.40-0.90); GLUCOSE 131 MG/DL (70-104); MAGNESIUM 1.7 MG/DL (1.5-2.4); POTASSIUM 3.9 MMOL/L (3.5-5.1); SODIUM 141 MMOL/L (135-145); TOTAL CARBON DIOXIDE 31.3 MMOL/L (24-32); eGFR 37 ML/MIN
[2018-01-26 06:00] VITALS: BP 138/101
[2018-01-26] MEDS: K and/or MAG REPLACEMENT MC SCH (07:50)
[2018-01-26] MEDS: aspirin 81mg tablet.DR PO SCH (07:53)
[2018-01-26] MEDS: levoTHYROXINE 88mcg tablet PO SCH (07:53)
[2018-01-26] MEDS: metoprolol succinate 25mg (24-HOUR) SR. Tablet PO SCH (07:53)
[2018-01-26] MEDS: docusate sod 100mg capsule PO SCH ×2 (07:53→20:00)
[2018-01-26] MEDS: ezetimibe 10mg tablet PO SCH (07:53)
[2018-01-26] MEDS: enoxaparin 30mg/0.3ml syringe SUBCUT SCH (07:54)
[2018-01-26] MEDS: LIDOcaine 5% patch TP SCH (07:54)
[2018-01-26 08:00] VITALS: BP_SYST 134; BP_SYST 153; BP_SYST 95; BP_DIAS 70; BP_DIAS 74; BP_DIAS 84
[2018-01-26] MEDS: HYDROcodone/acetaminophen 5mg/325mg tablet PO PRN (10:42)
[2018-01-26 10:45] VITALS: BP 134/70
[2018-01-26] MEDS: sodium chloride 0.45% 1,000 ML IV SCH (11:55)
[2018-01-26 18:00] VITALS: BP 120/64
[2018-01-26] MEDS: insulin Lispro (HumaLOG) vial - multi-dose SQ SCH (19:30)
[2018-01-26 20:00] VITALS: BP 120/64
[2018-01-26] MEDS: insulin glargine (Lantus) pen - multi-dose SQ SCH (21:58)
[2018-01-26 22:00] VITALS: BP 115/58
[2018-01-27] MEDS: ipratropium/albuterol 3ml nebule NEB SCH ×2 (03:46→07:24)
[2018-01-27 05:00] VITALS: BP 128/86
[2018-01-27 05:49] LABS: ALBUMIN 2.5 G/DL (3.4-5.0); ANION GAP 7 (8-16); BLOOD UREA NITROGEN 24 MG/DL (7-18); BUN/CREATININE RATIO 18.6 (6.6-38.0); CALCIUM 9.3 MG/DL (8.5-10.1); CHLORIDE 105 MMOL/L (99-107); CREATININE 1.29 MG/DL (0.40-0.90); GLUCOSE 100 MG/DL (70-104); MAGNESIUM 1.7 MG/DL (1.5-2.4); POTASSIUM 3.9 MMOL/L (3.5-5.1); SODIUM 146 MMOL/L (135-145); TOTAL CARBON DIOXIDE 34.2 MMOL/L (24-32); eGFR 39 ML/MIN
[2018-01-27] MEDS: K and/or MAG REPLACEMENT MC SCH (07:34)
[2018-01-27] MEDS: levoTHYROXINE 88mcg tablet PO SCH (07:39)
[2018-01-27] MEDS: aspirin 81mg tablet.DR PO SCH (07:39)
[2018-01-27] MEDS: docusate sod 100mg capsule PO SCH (07:39)
[2018-01-27] MEDS: metoprolol succinate 25mg (24-HOUR) SR. Tablet PO SCH (07:40)
[2018-01-27] MEDS: LIDOcaine 5% patch TP SCH (07:40)
[2018-01-27] MEDS: HYDROcodone/acetaminophen 5mg/325mg tablet PO PRN ×2 (07:40→11:57)
[2018-01-27] MEDS: ezetimibe 10mg tablet PO SCH (07:40)
[2018-01-27] MEDS: TYPE IN GENERIC & BRAND NAME OF PATIENT MED STRENGTH & FORM IJ SCH (08:00)
[2018-01-27] MEDS: enoxaparin 30mg/0.3ml syringe SUBCUT SCH (08:19)
[2018-01-27 10:00] VITALS: BP 103/61
== END 2018-01-27 13:15 | DRG 551 ==
LOC: ER 11:50 → ED HOLD 17:01 → EDBEDREQ 01-25 04:36 → ORTHO 4S 01-25 07:30
PROVIDERS: ADMIT Internal Medicine; ATTEND Internal Medicine
DX: M51.36 Other intervertebral disc degeneration, lumbar region (principal); G93.40 Encephalopathy, unspecified; N17.9 Acute kidney failure, unspecified; I13.0 Hypertensive heart and chronic kidney disease with heart failure and stage 1 through stage 4 chronic kidney disease, or unspecified chronic kidney disease; E11.22 Type 2 diabetes mellitus with diabetic chronic kidney disease; I50.9 Heart failure, unspecified; M46.96 Unspecified inflammatory spondylopathy, lumbar region; E86.0 Dehydration; J44.9 Chronic obstructive pulmonary disease, unspecified; I25.10 Atherosclerotic heart disease of native coronary artery without angina pectoris; R91.8 Other nonspecific abnormal finding of lung field; M54.5 Low back pain; N18.3 Chronic kidney disease, stage 3 (moderate); G89.29 Other chronic pain; Z66 Do not resuscitate; R29.6 Repeated falls; Z90.710 Acquired absence of both cervix and uterus; Z88.5 Allergy status to narcotic agent; Z88.0 Allergy status to penicillin; Z88.7 Allergy status to serum and vaccine; Z79.82 Long term (current) use of aspirin; Z79.52 Long term (current) use of systemic steroids; Z79.899 Other long term (current) drug therapy; Z87.891 Personal history of nicotine dependence; Z85.51 Personal history of malignant neoplasm of bladder; Z80.8 Family history of malignant neoplasm of other organs or systems
CPT/HCPCS: 36415; 80048; 80053; 81001; 82948; 83735; 85025; 87070; 87088; 94640; 94760; 96374; 97116; 97162; 97530; 99285; A6213; J1650; J1815; J1885; J2270

== ENCOUNTER 2018-07-15 10:45 | Inpatient (IN) | payer MEDICARE, MEDICAID ==
[~2018-07-15] VITALS: Ht 167.6 cm; Wt 70.0 kg
[~2018-07-15 10:45] MED LIST changes: +ASCO500C15 PO; -ATRIN INH; +CHOL100046 PO; +DOCU100C41 PO; +FERR325T28 PO; -GUAI600T45 PO; +INSU100V11 SQ; +IPRA3AMP31 IH; -IPRA3AMP9 NEB; +LISI-600 PO; +MULT1TAB74 PO; +NA P133E4 RC; -ONDA4TAB12 PO; +POLY17PO10 PO; -PRED10TA23 PO; +[UNRECOGNIZED DRUG - OTHER] SUBCUT
[2018-07-15] MEDS ORDERED: normal saline 1000ML IV soln IVB ONE (10:50)
[2018-07-15 11:31] LABS: ALANINE AMINOTRANSFERASE 15 U/L (12-78); ALBUMIN 2.3 G/DL (3.4-5.0); ALBUMIN/GLOBULIN RATIO 0.4 (1.1-1.5); ALKALINE PHOSPHATASE 79 IU/L (46-116); ANION GAP 3 (8-16); ASPARTATE AMINO TRANSFERASE 18 U/L (10-37); BILIRUBIN,TOTAL 0.2 MG/DL (0.1-1.0); BLOOD UREA NITROGEN 51 MG/DL (7-18); BUN/CREATININE RATIO 37.8 (6.6-38.0); CALCIUM 9.1 MG/DL (8.5-10.1); CHLORIDE 102 MMOL/L (99-107); CREATININE 1.35 MG/DL (0.40-0.90); GLUCOSE 164 MG/DL (70-104); POTASSIUM 5.4 MMOL/L (3.5-5.1); SODIUM 141 MMOL/L (135-145); TOTAL CARBON DIOXIDE 35.7 MMOL/L (24-32); TOTAL PROTEIN 7.5 G/DL (6.4-8.2); eGFR 37 ML/MIN
[2018-07-15 11:40] LABS: MAGNESIUM 2.7 MG/DL (1.5-2.4)
[2018-07-15 11:43] LABS: HEMATOCRIT 27.9 % (35.0-45.0); HEMOGLOBIN 9.1 g/dl (12.0-16.0); MEAN CORPUSCULAR HEMOGLOBIN 29.7 PG (27.0-31.0); MEAN CORPUSCULAR HGB CONC 32.4 % (33.0-36.5); MEAN CORPUSCULAR VOLUME 91.5 FL (78-98); RED BLOOD COUNT 3.05 X10'6 (4.20-5.60); WHITE BLOOD COUNT 8.3 X10'3 (4.5-11.0)
[2018-07-15 11:44] LABS: BASOPHILS % (AUTO) 0.3 % (0-1); EOSINOPHILS % (AUTO) 0.6 % (0-6); LYMPHOCYTES # (AUTO) 0.9 X10'3 (1.1-4.8); LYMPHOCYTES % (AUTO) 10.3 % (21-51); MEAN PLATELET VOLUME 8.6 FL (7.4-10.4); MONOCYTES # (AUTO) 0.4 X10'3 (0-0.9); MONOCYTES % (AUTO) 4.6 % (2-12); NEUTROPHILS % (AUTO) 84.2 % (42-75); PLATELET COUNT 385 X10'3 (140-440); RED CELL DISTRIBUTION WIDTH 17.6 % (11.5-14.5)
[2018-07-15] MEDS ORDERED: acetaminophen 325mg tablet PO PRN (13:35)
[2018-07-15] MEDS ORDERED: mag hydrox/Alum hydrox/simeth 30ml oral suspension PO PRN (13:35)
[2018-07-15] MEDS ORDERED: magnesium hydroxide 30ml (MOM) UD suspension PO PRN (13:35)
[2018-07-15] MEDS ORDERED: CefTRIAXone 2gm/D5W 50ml 50 ML IV ONE (13:45)
[2018-07-15] MEDS ORDERED: levoFLOXACIN-Levaquin 500mg/D5 100 ML IV ONE (13:55)
[2018-07-15] MEDS: dextrose 5%-1/2 normal saline 1,000 ML IV SCH (14:01)
[2018-07-15] MEDS ORDERED: LORA0.5T PO (16:20)
[2018-07-15] MEDS ORDERED: DEXT1DRO (16:36)
[2018-07-15] MEDS ORDERED: BUDE0.5A11 NEB (16:41)
[2018-07-15] MEDS ORDERED: GLUC1KIT IM (16:52)
[2018-07-15] MEDS ORDERED: LEVO88TA7 PO (16:52)
[2018-07-15 18:00] VITALS: BP 139/66
[2018-07-16] VITALS: BP 143/62
[2018-07-16 06:25] LABS: BASOPHILS % (AUTO) 0.4 % (0-1); EOSINOPHILS # (AUTO) 0.1 X10'3 (0-0.9); LYMPHOCYTES # (AUTO) 0.8 X10'3 (1.1-4.8); LYMPHOCYTES % (AUTO) 11.2 % (21-51); MEAN CORPUSCULAR HEMOGLOBIN 29.3 PG (27.0-31.0); MEAN CORPUSCULAR VOLUME 91.6 FL (78-98); MEAN PLATELET VOLUME 8.5 FL (7.4-10.4); MONOCYTES # (AUTO) 0.5 X10'3 (0-0.9); MONOCYTES % (AUTO) 6.8 % (2-12); NEUTROPHILS # (AUTO) 6.2 X10'3 (1.8-7.7); NEUTROPHILS % (AUTO) 80.6 % (42-75); PLATELET COUNT 368 X10'3 (140-440); RED BLOOD COUNT 2.73 X10'6 (4.20-5.60); WHITE BLOOD COUNT 7.6 X10'3 (4.5-11.0)
[2018-07-16 06:43] LABS: ALANINE AMINOTRANSFERASE 11 U/L (12-78); ALBUMIN 1.9 G/DL (3.4-5.0); ALBUMIN/GLOBULIN RATIO 0.4 (1.1-1.5); ALKALINE PHOSPHATASE 64 IU/L (46-116); ANION GAP 3 (8-16); ASPARTATE AMINO TRANSFERASE 16 U/L (10-37); BILIRUBIN,TOTAL 0.2 MG/DL (0.1-1.0); BLOOD UREA NITROGEN 32 MG/DL (7-18); BUN/CREATININE RATIO 29.9 (6.6-38.0); CALCIUM 8.7 MG/DL (8.5-10.1); CHLORIDE 105 MMOL/L (99-107); CREATININE 1.07 MG/DL (0.40-0.90); GLUCOSE 104 MG/DL (70-104); POTASSIUM 4.6 MMOL/L (3.5-5.1); SODIUM 143 MMOL/L (135-145); TOTAL CARBON DIOXIDE 34.8 MMOL/L (24-32); TOTAL PROTEIN 6.7 G/DL (6.4-8.2); eGFR 48 ML/MIN
[2018-07-16 07:00] VITALS: BP 155/75
[2018-07-16] MEDS ORDERED: CefTRIAXone/D5W-Rocephin 1gm 50 ML IV SCH (08:00)
[2018-07-16 08:05] LABS: PLATELET ESTIMATE NORMAL
[2018-07-16 08:06] LABS: ANISOCYTOSIS 2+; HYPOCHROMASIA 1+; POLYCHROMASIA 1+; ROULEAUX 1+
[2018-07-16] MEDS: levoFLOXACIN-Levaquin 500mg/D5 100 ML IV SCH (09:51)
[2018-07-16] MEDS ORDERED: IPRA3AMP31 IH (11:04)
[2018-07-16] MEDS ORDERED: PANT-47 PO (11:04)
[2018-07-16] MEDS ORDERED: DEXT1DRO OP (11:04)
[2018-07-16] MEDS: HYDROcodone/acetaminophen 5mg/325mg tablet PO PRN (15:18)
[2018-07-16] MEDS: dextrose 5%-1/2 normal saline 1,000 ML IV SCH (15:23)
[2018-07-16] MEDS ORDERED: LORazepam 0.5 MG tablet PO PRN (15:30)
[2018-07-16] MEDS: metroNIDAZOLE-Flagyl 500mg/NS 100 ML IV SCH (15:42)
[2018-07-16] MEDS: pantoprazole 40mg Tablet.DR PO SCH (15:48)
[2018-07-16] MEDS: lisinopril 20mg tablet PO SCH (15:49)
[2018-07-16] MEDS ORDERED: DEXTRAN OP PRN (15:50)
[2018-07-16] MEDS ORDERED: HYPROMELLOSE OP PRN (15:50)
[2018-07-16 18:00] VITALS: BP 131/74
[2018-07-16 18:34] LABS: OCCULT BLOOD STOOL NEGATIVE (Neg)
[2018-07-16] MEDS: lactobacillus rhamnosus 10,000 MMU CELLS/CAPSULE PO SCH (19:35)
[2018-07-16] MEDS ORDERED: budesonide 0.5mg/2ml UD nebule IH SCH (20:00)
[2018-07-16] MEDS: ipratropium/albuterol 3ml nebule NEB SCH (20:19)
[2018-07-17] VITALS: BP 131/71
[2018-07-17] MEDS: metroNIDAZOLE-Flagyl 500mg/NS 100 ML IV SCH ×4 (00:04→23:59)
[2018-07-17 05:08] LABS: BASOPHILS % (AUTO) 0.3 % (0-1); EOSINOPHILS # (AUTO) 0.1 X10'3 (0-0.9); EOSINOPHILS % (AUTO) 0.8 % (0-6); HEMATOCRIT 25.2 % (35.0-45.0); HEMOGLOBIN 7.8 g/dl (12.0-16.0); LYMPHOCYTES # (AUTO) 0.9 X10'3 (1.1-4.8); LYMPHOCYTES % (AUTO) 13.6 % (21-51); MEAN CORPUSCULAR HEMOGLOBIN 28.4 PG (27.0-31.0); MEAN CORPUSCULAR VOLUME 91.7 FL (78-98); MEAN PLATELET VOLUME 7.8 FL (7.4-10.4); MONOCYTES # (AUTO) 0.5 X10'3 (0-0.9); MONOCYTES % (AUTO) 6.7 % (2-12); NEUTROPHILS # (AUTO) 5.5 X10'3 (1.8-7.7); NEUTROPHILS % (AUTO) 78.6 % (42-75); PLATELET COUNT 382 X10'3 (140-440); RED BLOOD COUNT 2.74 X10'6 (4.20-5.60); RED CELL DISTRIBUTION WIDTH 19.1 % (11.5-14.5); WHITE BLOOD COUNT 6.9 X10'3 (4.5-11.0)
[2018-07-17] MEDS: HYDROcodone/acetaminophen 5mg/325mg tablet PO PRN ×2 (05:38→10:52)
[2018-07-17 05:41] LABS: ALANINE AMINOTRANSFERASE 8 U/L (12-78); ALBUMIN 1.9 G/DL (3.4-5.0); ALBUMIN/GLOBULIN RATIO 0.4 (1.1-1.5); ALKALINE PHOSPHATASE 64 IU/L (46-116); ANION GAP 4 (8-16); ASPARTATE AMINO TRANSFERASE 15 U/L (10-37); BILIRUBIN,TOTAL 0.2 MG/DL (0.1-1.0); BLOOD UREA NITROGEN 19 MG/DL (7-18); BUN/CREATININE RATIO 17.9 (6.6-38.0); CALCIUM 8.7 MG/DL (8.5-10.1); CHLORIDE 104 MMOL/L (99-107); CREATININE 1.06 MG/DL (0.40-0.90); GLUCOSE 104 MG/DL (70-104); POTASSIUM 4.3 MMOL/L (3.5-5.1); SODIUM 143 MMOL/L (135-145); TOTAL CARBON DIOXIDE 34.6 MMOL/L (24-32); TOTAL PROTEIN 6.4 G/DL (6.4-8.2); eGFR 49 ML/MIN
[2018-07-17 07:30] VITALS: BP 121/57
[2018-07-17] MEDS ORDERED: BUDESONIDE 0.25 MG/2 ML AMPUL.NEB IH SCH (09:01)
[2018-07-17] MEDS: levoFLOXACIN-Levaquin 500mg/D5 100 ML IV SCH (09:05)
[2018-07-17] MEDS: lactobacillus rhamnosus 10,000 MMU CELLS/CAPSULE PO SCH ×2 (09:05→20:28)
[2018-07-17] MEDS: levoTHYROXINE 88mcg tablet PO SCH (09:05)
[2018-07-17] MEDS: docusate sod 100mg capsule PO SCH (09:06)
[2018-07-17] MEDS: pantoprazole 40mg Tablet.DR PO SCH (09:06)
[2018-07-17] MEDS: lisinopril 20mg tablet PO SCH (09:06)
[2018-07-17] MEDS: ferrous sulfate 325mg tablet PO SCH (09:07)
[2018-07-17] MEDS: ipratropium/albuterol 3ml nebule NEB SCH ×3 (09:07→20:12)
[2018-07-17] MEDS: dextrose 5%-1/2 normal saline 1,000 ML IV SCH (10:36)
[2018-07-17 12:00] VITALS: BP 123/62
[2018-07-17 18:50] VITALS: BP 108/51
[2018-07-17] MEDS ORDERED: BUDESONIDE 0.25 MG/2 ML AMPUL.NEB IH ONE (19:55)
[2018-07-18] VITALS: BP 109/57
[2018-07-18] MEDS: dextrose 5%-1/2 normal saline 1,000 ML IV SCH ×2 (01:04→21:35)
[2018-07-18] MEDS: HYDROcodone/acetaminophen 5mg/325mg tablet PO PRN ×3 (01:04→21:57)
[2018-07-18 05:21] LABS: BASOPHILS # (AUTO) 0.1 X10'3 (0-0.2); BASOPHILS % (AUTO) 0.7 % (0-1); EOSINOPHILS % (AUTO) 0.4 % (0-6); HEMOGLOBIN 8.1 g/dl (12.0-16.0); LYMPHOCYTES # (AUTO) 1.1 X10'3 (1.1-4.8); LYMPHOCYTES % (AUTO) 14.5 % (21-51); MEAN CORPUSCULAR HEMOGLOBIN 28.7 PG (27.0-31.0); MEAN CORPUSCULAR HGB CONC 31.3 % (33.0-36.5); MEAN CORPUSCULAR VOLUME 91.9 FL (78-98); MEAN PLATELET VOLUME 7.8 FL (7.4-10.4); MONOCYTES # (AUTO) 0.6 X10'3 (0-0.9); MONOCYTES % (AUTO) 7.2 % (2-12); NEUTROPHILS # (AUTO) 5.9 X10'3 (1.8-7.7); NEUTROPHILS % (AUTO) 77.2 % (42-75); PLATELET COUNT 385 X10'3 (140-440); RED BLOOD COUNT 2.83 X10'6 (4.20-5.60); RED CELL DISTRIBUTION WIDTH 18.7 % (11.5-14.5); WHITE BLOOD COUNT 7.6 X10'3 (4.5-11.0)
[2018-07-18 05:57] LABS: ALANINE AMINOTRANSFERASE 11 U/L (12-78); ALBUMIN 1.9 G/DL (3.4-5.0); ALBUMIN/GLOBULIN RATIO 0.4 (1.1-1.5); ALKALINE PHOSPHATASE 62 IU/L (46-116); ANION GAP 6 (8-16); ASPARTATE AMINO TRANSFERASE 17 U/L (10-37); BILIRUBIN,TOTAL 0.3 MG/DL (0.1-1.0); BLOOD UREA NITROGEN 16 MG/DL (7-18); BUN/CREATININE RATIO 14.3 (6.6-38.0); CALCIUM 8.6 MG/DL (8.5-10.1); CHLORIDE 104 MMOL/L (99-107); CREATININE 1.12 MG/DL (0.40-0.90); GLUCOSE 111 MG/DL (70-104); POTASSIUM 4.2 MMOL/L (3.5-5.1); SODIUM 142 MMOL/L (135-145); TOTAL CARBON DIOXIDE 32.4 MMOL/L (24-32); TOTAL PROTEIN 6.6 G/DL (6.4-8.2); eGFR 46 ML/MIN
[2018-07-18 07:15] VITALS: BP 106/57
[2018-07-18] MEDS: pantoprazole 40mg Tablet.DR PO SCH (07:17)
[2018-07-18] MEDS: docusate sod 100mg capsule PO SCH (07:17)
[2018-07-18] MEDS: lactobacillus rhamnosus 10,000 MMU CELLS/CAPSULE PO SCH ×2 (07:17→20:00)
[2018-07-18] MEDS: metroNIDAZOLE-Flagyl 500mg/NS 100 ML IV SCH ×2 (07:17→15:29)
[2018-07-18] MEDS: ferrous sulfate 325mg tablet PO SCH (07:17)
[2018-07-18] MEDS: levoTHYROXINE 88mcg tablet PO SCH (07:18)
[2018-07-18] MEDS: lisinopril 20mg tablet PO SCH (07:18)
[2018-07-18] MEDS: ipratropium/albuterol 3ml nebule NEB SCH ×3 (07:48→20:13)
[2018-07-18] MEDS: BUDESONIDE 0.25 MG/2 ML AMPUL.NEB IH SCH ×2 (07:48→20:13)
[2018-07-18] MEDS: levoFLOXACIN-Levaquin 500mg/D5 100 ML IV SCH (09:17)
[2018-07-18] MEDS: ondansetron/PF 4mg/2ml inj IV PRN (10:16)
[2018-07-18 11:12] VITALS: BP 125/74
[2018-07-18 19:00] VITALS: BP 110/77
[2018-07-19] VITALS: BP 99/46
[2018-07-19] MEDS: metroNIDAZOLE-Flagyl 500mg/NS 100 ML IV SCH ×3 (00:03→17:44)
[2018-07-19 05:31] LABS: BASOPHILS % (AUTO) 0.2 % (0-1); EOSINOPHILS # (AUTO) 0.1 X10'3 (0-0.9); EOSINOPHILS % (AUTO) 1.7 % (0-6); HEMATOCRIT 24.1 % (35.0-45.0); HEMOGLOBIN 7.6 g/dl (12.0-16.0); LYMPHOCYTES % (AUTO) 15.9 % (21-51); MEAN CORPUSCULAR HEMOGLOBIN 28.8 PG (27.0-31.0); MEAN CORPUSCULAR HGB CONC 31.4 % (33.0-36.5); MEAN CORPUSCULAR VOLUME 91.9 FL (78-98); MONOCYTES # (AUTO) 0.6 X10'3 (0-0.9); NEUTROPHILS # (AUTO) 4.7 X10'3 (1.8-7.7); NEUTROPHILS % (AUTO) 72.2 % (42-75); PLATELET COUNT 328 X10'3 (140-440); RED BLOOD COUNT 2.62 X10'6 (4.20-5.60); RED CELL DISTRIBUTION WIDTH 19.5 % (11.5-14.5); WHITE BLOOD COUNT 6.5 X10'3 (4.5-11.0)
[2018-07-19 06:03] LABS: ALANINE AMINOTRANSFERASE 9 U/L (12-78); ALBUMIN 1.6 G/DL (3.4-5.0); ALBUMIN/GLOBULIN RATIO 0.4 (1.1-1.5); ALKALINE PHOSPHATASE 57 IU/L (46-116); ANION GAP 5 (8-16); ASPARTATE AMINO TRANSFERASE 17 U/L (10-37); BILIRUBIN,TOTAL 0.2 MG/DL (0.1-1.0); BLOOD UREA NITROGEN 16 MG/DL (7-18); BUN/CREATININE RATIO 14.5 (6.6-38.0); CHLORIDE 105 MMOL/L (99-107); GLUCOSE 105 MG/DL (70-104); POTASSIUM 4.2 MMOL/L (3.5-5.1); SODIUM 143 MMOL/L (135-145); TOTAL CARBON DIOXIDE 33.5 MMOL/L (24-32); TOTAL PROTEIN 5.8 G/DL (6.4-8.2); eGFR 47 ML/MIN
[2018-07-19] MEDS: dextrose 5%-1/2 normal saline 1,000 ML IV SCH (06:35)
[2018-07-19 06:42] LABS: ANISOCYTOSIS 2+; HYPOCHROMASIA 1+; PLATELET ESTIMATE NORMAL; STOMATOCYTES 1+
[2018-07-19 07:02] VITALS: BP 135/56
[2018-07-19] MEDS: BUDESONIDE 0.25 MG/2 ML AMPUL.NEB IH SCH ×2 (07:02→22:00)
[2018-07-19] MEDS: ipratropium/albuterol 3ml nebule NEB SCH ×3 (07:02→22:00)
[2018-07-19] MEDS: docusate sod 100mg capsule PO SCH (08:21)
[2018-07-19] MEDS: pantoprazole 40mg Tablet.DR PO SCH (08:22)
[2018-07-19] MEDS: lisinopril 20mg tablet PO SCH (08:22)
[2018-07-19] MEDS: lactobacillus rhamnosus 10,000 MMU CELLS/CAPSULE PO SCH ×2 (08:22→20:56)
[2018-07-19] MEDS: ferrous sulfate 325mg tablet PO SCH (08:22)
[2018-07-19] MEDS: levoTHYROXINE 88mcg tablet PO SCH (08:22)
[2018-07-19] MEDS: HYDROcodone/acetaminophen 5mg/325mg tablet PO PRN ×2 (09:25→20:57)
[2018-07-19] MEDS: levoFLOXACIN-Levaquin 500mg/D5 100 ML IV SCH (10:08)
[2018-07-19 11:17] VITALS: BP 87/48
[2018-07-19 11:18] VITALS: BP 84/48
[2018-07-19 19:00] VITALS: BP 104/53
[2018-07-19] MEDS: nystatin 500,000 unit/5ML UD oral suspension PO SCH (20:56)
[2018-07-20] MEDS: metroNIDAZOLE-Flagyl 500mg/NS 100 ML IV SCH ×2 (00:14→08:36)
[2018-07-20 00:36] VITALS: BP 117/53
[2018-07-20] MEDS: ondansetron/PF 4mg/2ml inj IV PRN (04:40)
[2018-07-20 05:49] LABS: BASOPHILS % (AUTO) 0.5 % (0-1); EOSINOPHILS # (AUTO) 0.2 X10'3 (0-0.9); EOSINOPHILS % (AUTO) 2.3 % (0-6); HEMATOCRIT 24.5 % (35.0-45.0); HEMOGLOBIN 7.7 g/dl (12.0-16.0); LYMPHOCYTES # (AUTO) 1.1 X10'3 (1.1-4.8); LYMPHOCYTES % (AUTO) 15.3 % (21-51); MEAN CORPUSCULAR HEMOGLOBIN 29.1 PG (27.0-31.0); MEAN CORPUSCULAR HGB CONC 31.6 % (33.0-36.5); MEAN CORPUSCULAR VOLUME 92.1 FL (78-98); MEAN PLATELET VOLUME 7.9 FL (7.4-10.4); MONOCYTES # (AUTO) 0.7 X10'3 (0-0.9); MONOCYTES % (AUTO) 9.8 % (2-12); NEUTROPHILS # (AUTO) 5.1 X10'3 (1.8-7.7); NEUTROPHILS % (AUTO) 72.1 % (42-75); PLATELET COUNT 326 X10'3 (140-440); RED BLOOD COUNT 2.66 X10'6 (4.20-5.60); RED CELL DISTRIBUTION WIDTH 19.9 % (11.5-14.5); WHITE BLOOD COUNT 7.1 X10'3 (4.5-11.0)
[2018-07-20 06:13] LABS: ALANINE AMINOTRANSFERASE 9 U/L (12-78); ALBUMIN 1.7 G/DL (3.4-5.0); ALBUMIN/GLOBULIN RATIO 0.4 (1.1-1.5); ALKALINE PHOSPHATASE 53 IU/L (46-116); ANION GAP 2 (8-16); ASPARTATE AMINO TRANSFERASE 14 U/L (10-37); BILIRUBIN,TOTAL 0.3 MG/DL (0.1-1.0); BLOOD UREA NITROGEN 17 MG/DL (7-18); BUN/CREATININE RATIO 15.2 (6.6-38.0); CHLORIDE 104 MMOL/L (99-107); CREATININE 1.12 MG/DL (0.40-0.90); GLUCOSE 104 MG/DL (70-104); POTASSIUM 4.2 MMOL/L (3.5-5.1); SODIUM 140 MMOL/L (135-145); TOTAL CARBON DIOXIDE 33.9 MMOL/L (24-32); TOTAL PROTEIN 6.1 G/DL (6.4-8.2); eGFR 46 ML/MIN
[2018-07-20 07:00] LABS: ANISOCYTOSIS 2+; HYPOCHROMASIA 1+; PLATELET ESTIMATE NORMAL
[2018-07-20 08:00] VITALS: BP 128/64
[2018-07-20] MEDS: pantoprazole 40mg Tablet.DR PO SCH (08:34)
[2018-07-20] MEDS: lactobacillus rhamnosus 10,000 MMU CELLS/CAPSULE PO SCH (08:34)
[2018-07-20] MEDS: BUDESONIDE 0.25 MG/2 ML AMPUL.NEB IH SCH (08:34)
[2018-07-20] MEDS: ipratropium/albuterol 3ml nebule NEB SCH ×2 (08:34→15:27)
[2018-07-20] MEDS: docusate sod 100mg capsule PO SCH (08:34)
[2018-07-20] MEDS: ferrous sulfate 325mg tablet PO SCH (08:34)
[2018-07-20] MEDS: lisinopril 20mg tablet PO SCH (08:34)
[2018-07-20] MEDS: nystatin 500,000 unit/5ML UD oral suspension PO SCH ×2 (08:35→13:58)
[2018-07-20] MEDS: levoFLOXACIN-Levaquin 500mg/D5 100 ML IV SCH (08:35)
[2018-07-20] MEDS: levoTHYROXINE 88mcg tablet PO SCH (08:35)
[2018-07-20 11:00] VITALS: BP 95/54
[2018-07-20] MEDS: dextrose 5%-1/2 normal saline 1,000 ML IV SCH ×2 (13:35→14:30)
== END 2018-07-20 16:11 | DRG 378 ==
LOC: ER 10:45 → ED HOLD 13:35 → SUR 3N 17:07
PROVIDERS: ADMIT Internal Medicine; ATTEND Internal Medicine
DX: K92.1 Melena (principal); C34.12 Malignant neoplasm of upper lobe, left bronchus or lung; G93.40 Encephalopathy, unspecified; F03.90 Unspecified dementia, unspecified severity, without behavioral disturbance, psychotic disturbance, mood disturbance, and anxiety; E03.9 Hypothyroidism, unspecified; F41.9 Anxiety disorder, unspecified; H04.123 Dry eye syndrome of bilateral lacrimal glands; D64.9 Anemia, unspecified; J44.9 Chronic obstructive pulmonary disease, unspecified; G89.29 Other chronic pain; I12.9 Hypertensive chronic kidney disease with stage 1 through stage 4 chronic kidney disease, or unspecified chronic kidney disease; I25.10 Atherosclerotic heart disease of native coronary artery without angina pectoris; E11.22 Type 2 diabetes mellitus with diabetic chronic kidney disease; N18.3 Chronic kidney disease, stage 3 (moderate); K59.00 Constipation, unspecified; Z60.2 Problems related to living alone; M54.9 Dorsalgia, unspecified; Z51.5 Encounter for palliative care; Z66 Do not resuscitate; Z90.710 Acquired absence of both cervix and uterus; Z95.5 Presence of coronary angioplasty implant and graft; Z88.0 Allergy status to penicillin; Z88.5 Allergy status to narcotic agent; Z79.4 Long term (current) use of insulin; Z79.899 Other long term (current) drug therapy; Z87.891 Personal history of nicotine dependence
CPT/HCPCS: 36415; 71045; 71250; 80053; 82272; 82948; 83735; 83880; 84439; 84443; 84484; 85025; 85610; 86885; 86900; 86901; 87070; 93005; 94640; 94760; 96360; 99285; G0378; J1956; J2405; J3490; J7626